=== PATIENT | female | born 1950 | race Caucasian/White ===

== ENCOUNTER → 2017-01-01 14:54 | Outpatient (CLI) | payer MEDICARE, OTHER ==
[~2017-01-01 14:54] MED LIST: BAYER ASPIRIN325 MG PO; BYSTOLIC5 MG PO; CO Q-10200 MG PO; COLACE100 MG PO; CYMBALTA60 MG PO; FLORAJEN3 CAPS460 MG PO; IMITREX50 MG PO; KLONOPIN1 MG PO; MIRALAX17 GM PO; MUCINEX DM ER1 EAC1 PO; NEXIUM20 MG PO; VIBRAMYCIN 100100 MG PO; VITAMIN D5000 UNIT; ZANAFLEX4 MG PO
[2017-01-07 14:24] VITALS: BMI 25.5
== END | disposition home or self-care (01) ==
LOC: D.CT 14:54
DX: J18.9 Pneumonia, unspecified organism (principal)

== ENCOUNTER 2017-01-06 14:20 | Inpatient (IN) | payer MEDICARE, OTHER ==
[~2017-01-06] VITALS: Ht 167.6 cm; Wt 71.7 kg
[2017-01-06 14:48] VITALS: BP 125/96; BMI 25.5
[2017-01-06 14:55] LABS: BASOPHILS 0.4 % (0.0-2.0); EOSINOPHILS 10.2 % (0-7); HEMATOCRIT 44.2 % (36.0-48.0); HEMOGLOBIN 14.7 g/dL (12-16); IMMATURE GRANULOCYTES 0.7 % (0-5); MCH 30.9 pg (26.0-34.0); MCHC 33.3 g/dL (31.0-37.0); MCV 93.1 fL (80.0-100.0); MEAN PLATELET VOLUME 9.3 fL (7.4-10.4); MONOCYTES 10.4 % (2-11); NEUTROPHILS 45.3 % (40-80); PLATELET COUNT 325 10x3/uL (130-400); RBC 4.75 10x6/uL (4.00-5.40); RDW 13.5 % (11.5-14.5); WBC 11.8 10x3/uL (4.8-10.8)
--- NOTE | 2017-01-06 15:00 | NUR ---
PT. ARRIVED VIA AMBULATION. 67Y/O FEMALE PT. AAO X4. PT. DENIES PAIN AT THIS TIME.PT. REPLIES APPROPRIATELY TO QUESTIONS AND CAN FOLLOW VERBAL COMMANDS. PERRLA. RESP. EVEN AND NONLABORED. LUNG SOUNDS CRACKLES BILATERALLY UPPER LOBES AND DIMMINISHED LOWER LUNG SOUNDS. SKIN PINK WARM AND DRY WITH NO REDNESS OR EDEMA. SMALL ABASION IN HEALING PROCESS ON RIGHT MEDIAL ANKLE SCABBED OVER. ABDOMEN SOFT AND NONTENDER WITH BS+X4. BED ON LOWEST SETTING SR X2. CALL LIGHT WITHIN REACH. WILL CONTINUE TO MONITOR
[2017-01-06 15:22] LABS: ALBUMIN 3.6 g/dL (3.4-5.0); ALKALINE PHOSPHATASE 124 U/L (46-116); ALT (SGPT) 27 U/L (10-68); BILIRUBIN - TOTAL 0.21 mg/dL (0.2-1.3); CALC OSMOLALITY 286 mosm/kg (275-300); CALCIUM 9.1 mg/dL (8.5-10.1); CARBON DIOXIDE 30.2 mmol/L (21.0-32.0); CHLORIDE - SERUM 105 mmol/L (98-107); CREATININE - SERUM 0.6 mg/dL (0.6-1.3); GLUCOSE 88 mg/dL (74-106); POTASSIUM - SERUM 4.1 mmol/L (3.5-5.1); PROTEIN - SERUM 6.8 g/dL (6.4-8.2); SODIUM 144 mmol/L (136-145); UREA NITROGEN 16 mg/dL (7-18); eGFR NON AFRICAN AMERICAN > 90 mL/min (90-120)
[2017-01-06] MEDS ORDERED: BYSTOLIC5 MG PO (16:14)
[2017-01-06] MEDS ORDERED: KLONOPIN1 MG PO (16:16)
[2017-01-06] MEDS ORDERED: IMITREX50 MG PO (16:17)
[2017-01-06] MEDS ORDERED: BAYER ASPIRIN325 MG PO (16:17)
[2017-01-06] MEDS ORDERED: MIRALAX17 GM PO (16:18)
[2017-01-06 16:19] VITALS: BP 127/85
[2017-01-06] MEDS ORDERED: NEXIUM20 MG PO (16:19)
[2017-01-06] MEDS ORDERED: CYMBALTA60 MG PO (16:20)
[2017-01-06] MEDS ORDERED: ZANAFLEX4 MG PO (16:20)
[2017-01-06] MEDS ORDERED: CO Q-10200 MG PO (16:21)
[2017-01-06] MEDS ORDERED: COLACE100 MG PO (16:21)
[2017-01-06] MEDS ORDERED: VITAMIN D5000 UNIT (16:22)
[2017-01-06 17:18] LABS: INR 0.91 (0.85-1.17); PROTIME 12.1 SECONDS (11.6-15.0)
--- NOTE | 2017-01-06 18:49 | NUR ---
ATE ALL OF SUPPER. NO C/O AT THIS TIME. DENIES NEEDS. NO CHANGES NOTED.
--- NOTE | 2017-01-06 20:00 | NUR ---
ASSESSMENT PER FLOWSHEET. IV PATENT RT FOREARM OF NS AT O. ANTIBIOTIC HANGING.URINE SP[ECIMEN OBTAINED AND SENT TO LAB.
[2017-01-06 21:00] VITALS: BP 147/74
--- NOTE | 2017-01-06 21:06 | NUR ---
C/O PAIN IN HEAD HAS HX OF MIGRAINES. ULTRAM 50MG PO AND ZANAFLEX 4MG PO GIVEN FOR PAIN AND MUSCLE SPASMS.
--- NOTE | 2017-01-06 23:30 | NUR ---
REQUESTING NERVE PILL. KLONOPIN 0.5MG PO GIVEN FOR PT NERVES AND ANXIETY.
--- NOTE | 2017-01-07 00:30 | NUR ---
PT WANTS HER MIGRAINE MED. NOTIFIED OUMOU LAWTON ORDERS REC'D. NOTIFIED CARGO STATION WORKER Bety LAGUNAS RN WILL BRING SOON POSSIBLE.
[2017-01-07 01:00] VITALS: BP 152/70
--- NOTE | 2017-01-07 01:14 | NUR ---
CHIEF CHEMIST HERE IMITREX 50MG PO GIVEN FOR MIGRAINE HEADACHE PAIN OF A #10.
--- NOTE | 2017-01-07 03:00 | NUR ---
EYES CLOSED STATES PAIN MED HELPED ALOT PT VERY HAPPY PAIN IS STARTING TO SUBSIDE.
[2017-01-07 05:00] VITALS: BP 130/70
[2017-01-07 05:22] LABS: BASOPHILS 0.5 % (0.0-2.0); EOSINOPHILS 11.2 % (0-7); HEMATOCRIT 40.3 % (36.0-48.0); HEMOGLOBIN 13.1 g/dL (12-16); IMMATURE GRANULOCYTES 0.5 % (0-5); LYMPHOCYTES 33.3 % (15-50); MCH 30.2 pg (26.0-34.0); MCHC 32.5 g/dL (31.0-37.0); MCV 92.9 fL (80.0-100.0); MEAN PLATELET VOLUME 9.1 fL (7.4-10.4); MONOCYTES 11.3 % (2-11); NEUTROPHILS 43.2 % (40-80); PLATELET COUNT 287 10x3/uL (130-400); RBC 4.34 10x6/uL (4.00-5.40); RDW 13.6 % (11.5-14.5); WBC 11.1 10x3/uL (4.8-10.8)
[2017-01-07 06:01] LABS: ALBUMIN 2.9 g/dL (3.4-5.0); ALKALINE PHOSPHATASE 95 U/L (46-116); ALT (SGPT) 23 U/L (10-68); CALC OSMOLALITY 285 mosm/kg (275-300); CALCIUM 8.6 mg/dL (8.5-10.1); CARBON DIOXIDE 29.8 mmol/L (21.0-32.0); CHLORIDE - SERUM 107 mmol/L (98-107); CREATININE - SERUM 0.7 mg/dL (0.6-1.3); GLUCOSE 103 mg/dL (74-106); POTASSIUM - SERUM 3.9 mmol/L (3.5-5.1); PROTEIN - SERUM 6.1 g/dL (6.4-8.2); SODIUM 143 mmol/L (136-145); UREA NITROGEN 14 mg/dL (7-18); eGFR NON AFRICAN AMERICAN 88 mL/min (90-120)
--- NOTE | 2017-01-07 06:50 | NUR ---
MEDS GIVEN PER MAR.
--- NOTE | 2017-01-07 07:30 | NUR ---
AWAKE ALERT COLOR ADQ SKIN WARM AND DRY AT PRESENT IV RESITED IN RT WRIST AT PRESENT OTHER SITE JAVIER AND DIS COLORED DCD.
[2017-01-07 08:02] VITALS: BP 120/72
--- NOTE | 2017-01-07 09:51 | NUR ---
TO OR VIA BED AT PRESENT.
--- NOTE | 2017-01-07 13:00 | NUR ---
LUNCH TAKEN 100% family at bedside YOU TO B/R TO VOID LINDA WELL
[2017-01-07 13:54] LABS: EOS BF 23 %; LYMPH - BF 49 %; MACROPHAGES BF 14 %; MESOTHELIALS BF 1 %; NEUT - BF 13 %
[2017-01-07 14:24] VITALS: Ht 167.6 cm; Wt 71.7 kg
--- NOTE | 2017-01-07 15:00 | NUR ---
QUIET IN CHAIR AT PRESENT N/C.
--- NOTE | 2017-01-07 15:11 | NUR ---
Patient Name: LINDEN ANDERSON Admission Status: Urgent Accout number: [id number] Admission Date: 01-06-2017 : 1950 Admission Diagnosis: Attending: JUSTA Current LOS: 1 Anticipated DC Date: 01-10-2017 Planned Disposition: Home Primary Insurance: MEDICARE A & B Discharge Planning Comments: CM MET WITH PATIENT REGARDING D/C NEEDS AND PLANS. PATIENT STATED SHE LIVES ALONE AND WHEN DISCHARGED SOMEONE IN FAMILY WILL DRIVE HER HOME. PATIENT STATED SHE IS INDEPENDENT WITH HER CARE AND HAS A CPAP AT HOME. PATIENT STATED HER PCP IS DR. RIDER AND PHARMACY IS [facility]. PATIENT STATED SHE DOES NOT NEED OR WANT HOME HEALTH THAT SHE IS CLEARED. PATIENT WAS VERY SHARPE WITH SAYING NO HOME HEALTH. CM WILL CONTINUE TO FOLLOW PATIENT WITH D/C NEEDS AND PLANS. PCP DR. ADRY CIFUENTES ([facility]) [address] [phone] APURVA ANDERSON ([phone]) Bobbin Cleaner Hand: Judy Stovall Is the patient Alert and Oriented? Yes 0 * How many steps to enter\exit or inside your home? RAMP 0 * PCP DR. RIDER 0 * Pharmacy [facility] ON [address] 0 * Preadmission Environment Home Alone 0 * ADLs Independent 0 * Equipment CPAP 0 * List name and contact numbers for known caregivers / representatives who currently or will assist patient after discharge: APURVA ANDERSON ([phone]) 0 * Community resources currently utilized None 0 * Additional services required to return to the preadmission environment? Yes 0 * Can the patient safely return to the preadmission environment? Yes 0 * Has this patient been hospitalized within the prior 30 days at any hospital? No 0 Grand Total: 0
--- NOTE | 2017-01-07 16:27 | NUR ---
CONT TO C/O HEADACHE FAMILY AT BEDSIDE AT PRESENT.
[2017-01-07 16:30] VITALS: BP 156/82
--- NOTE | 2017-01-07 17:11 | NUR ---
VS NEW ORDERS R/N AT PRESENT TORODAL 30MG GIVEN SLOW IVP AT PRESENT.
--- NOTE | 2017-01-07 20:00 | NUR ---
ASSESSMENT PER FLOWSHEET. IV SALINE LOCKED TO RT WRIST. SITE CLEAR. RESTING IN BED DENIES NEEDS. SCD'S ON SR UP X2 CALL LIGHT WITHIN NREACH. TELM.SHOWS SR WITH HR 68. DENIES NEEDS.
[2017-01-07 21:00] VITALS: BP 116/73
--- NOTE | 2017-01-07 21:30 | NUR ---
MEDS GIVEN PER MAR.
--- NOTE | 2017-01-08 00:23 | NUR ---
RESTING IN BED DENIES NEEDS.
[2017-01-08 01:00] VITALS: BP 122/70
[2017-01-08 05:50] LABS: BASOPHILS 0.3 % (0.0-2.0); EOSINOPHILS 3.5 % (0-7); HEMATOCRIT 39.4 % (36.0-48.0); HEMOGLOBIN 12.8 g/dL (12-16); IMMATURE GRANULOCYTES 0.3 % (0-5); LYMPHOCYTES 24.1 % (15-50); MCH 30.3 pg (26.0-34.0); MCHC 32.5 g/dL (31.0-37.0); MCV 93.1 fL (80.0-100.0); MEAN PLATELET VOLUME 9.4 fL (7.4-10.4); MONOCYTES 9.4 % (2-11); NEUTROPHILS 62.4 % (40-80); PLATELET COUNT 293 10x3/uL (130-400); RBC 4.23 10x6/uL (4.00-5.40); RDW 13.5 % (11.5-14.5)
[2017-01-08 05:51] LABS: WBC 13.9 10x3/uL (4.8-10.8)
[2017-01-08 06:28] LABS: ALBUMIN 2.9 g/dL (3.4-5.0); ALKALINE PHOSPHATASE 95 U/L (46-116); ALT (SGPT) 26 U/L (10-68); BILIRUBIN - TOTAL 0.62 mg/dL (0.2-1.3); CALC OSMOLALITY 284 mosm/kg (275-300); CALCIUM 8.8 mg/dL (8.5-10.1); CARBON DIOXIDE 31.6 mmol/L (21.0-32.0); CHLORIDE - SERUM 104 mmol/L (98-107); CREATININE - SERUM 0.8 mg/dL (0.6-1.3); GLUCOSE 113 mg/dL (74-106); PROTEIN - SERUM 5.6 g/dL (6.4-8.2); SODIUM 142 mmol/L (136-145); UREA NITROGEN 16 mg/dL (7-18); eGFR NON AFRICAN AMERICAN 75 mL/min (90-120)
[2017-01-08 06:43] LABS: POTASSIUM - SERUM 4.6 mmol/L (3.5-5.1)
--- NOTE | 2017-01-08 07:15 | NUR ---
AWAKE ALERT COLOR ADQ SKIN WARM AND DRY AT PRESENT SL PATENT IN RT WRIST AT PRESENT.LUNGS CLEAR AT PRESENT.
--- NOTE | 2017-01-08 07:55 | NUR ---
NORCO 7.5 PO FOR HEADACHE PER PT REQ AT PRESENT.
[2017-01-08 08:31] VITALS: BP 120/56
--- NOTE | 2017-01-08 10:00 | NUR ---
SON AT BEDSIDE AT PRESENT QUIET N/C VOICED.
--- NOTE | 2017-01-08 11:42 | CN ---
PATIENT NAME:LINDEN ANDERSON MEDICAL RECORD: [id number] : [birth year] LOCATION:D.MS Gutierrez2223 ADMIT DATE: 01/06/17 ACCOUNT: [id number] CONSULTING PHYSICIAN: SONDRA CARLISLE MD REFERRING PHYSICIAN: CARLA RIDER MD DATE OF CONSULTATION: 01/07/2017 Gastrointestinal Consultation REFERRING PHYSICIAN: Jaqueline Loazda MD HISTORY OF PRESENT ILLNESS: The patient is a 66-year-old white female, who is basically admitted with a 1-month history of a persistent low-grade fever and what sounds like pneumonia as well. I was asked to see the patient to see if any GI issues might be contributing to these problems, a solid aspiration. On chart review, I have seen this lady for several years. She has a history of colon polyps, as well as mild sigmoid diverticulosis. She basically normal colonoscopy in August 2016; however, there are small internal hemorrhoids and mild sigmoid diverticulosis. She also has history of reflux disease, but had an essentially normal EGD in August 2015; however, with a minimal stenosis, which was dilated with 54-U[place] Savary dilator. She has been on Protonix for years. She denies any current dysphagia. She does have some chronic constipation issues, which she has had for quite some time. However, she is essentially asymptomatic from a GI standpoint at present. PAST MEDICAL HISTORY: Remarkable for cardiac arrhythmias, status post cardiac ablation. She also has peripheral neuropathy and chronic headaches. She also has hypertension. ALLERGIES: NIACIN, NITROFURANTOIN, RYTHMOL, SIMVASTATIN AND VERAPAMIL. HOME MEDICATIONS: Include Protonix 40 mg daily, aspirin 325 mg daily, Bystolic, Klonopin, Imitrex, MiraLax 17 grams daily, Zanaflex, Cymbalta, Colace, and vitamin D. FAMILY HISTORY: Negative for GI disease. SOCIAL HISTORY: The patient is a nonsmoker, nondrinker. REVIEW OF SYSTEMS: Noncontributory other than in the HPI. PHYSICAL EXAMINATION: GENERAL: Reveals a well- developed white female, in no acute distress. VITAL SIGNS: Stable. She is afebrile. CHEST: Clear. HEART: Regular rate and rhythm. ABDOMEN: Soft and nontender. EXTREMITIES: No edema. LABORATORY DATA: Reveals white count 11,000, hematocrit 44, MCV of 93 and platelet count 325,000. She has a normal differential. Electrolytes are normal. BUN 16 and creatinine 0.4. Liver enzymes are normal. DIAGNOSTIC DATA: Chest x-ray is essentially unremarkable. There is no mention CONSULT REPORT [id number] JUSTINLINDEN Emerson of pneumonia on this film. However, she had a CT of the chest about a week ago that revealed some scattered faint alveolar densities throughout both lungs, more pronounced in the lingula and medial segment of the right middle lobe consistent with pneumonia, as well as some granulomatous changes in the hilum and left lower lobe. She is status post cholecystectomy. IMPRESSION: 1. Low-grade fever with apparent recurrent/persistent pneumonia of unclear etiology. Again, her bedside swallow eval was negative earlier today with no signs of aspiration. She also had ____ bronchoscopy today per Dr. Alcocer. She does have a known mild reflux disease and stable in that regard on Protonix. Again, her last EGD was in October 2015 and was normal other than minimal stenosis status post dilatation. She had no active esophagitis at that time. 2. History of colon polyps, up to date on her colonoscopies. 3. History of mild sigmoid diverticulosis. 4. History of chronic constipation on daily MiraLax. RECOMMENDATION: 1. Continue her PPI daily. 2. Agree with possible need for an ID consult. 3. We will see on a p.r.n. basis. I see no reason for repeat endoscopy at this time. TRANSINT:[id number] Voice Confirmation ID: [id number] DOCUMENT ID: [id number] SONDRA CARLISLE MD at 1142 CC: RANDALL ALCOCER MD and JAQUELINE LOZADA M.D. [id number] DICTATION DATE: 01/07/171904 STENCIL SPRAYER: 01/08/17 0152 ADM IN [facility] [address] [place] [address]
[2017-01-08 11:46] VITALS: BP 92/43
--- NOTE | 2017-01-08 11:56 | NUR ---
HEARD A THUMP SOUND IN ROOM. UPON ENTERING ROOM PT NOTED TO BE IN FLOOR IN FRONT OF SINK WITH SON AT BEDSIDE. STATED SHE WAS UP BRUSHING HER TEETH GOT DIZZY AND WENT TO SIT ON TRASH CAN AND FELL OFF CAN. HELPED TO BED WITH PHYSICAL THERAPY. NO INJURY NOTED. STATES NO PAIN. ACCOUNTS RECEIVABLE SUPERVISOR STATES SB 53 ON MONITOR. EVERARDO LAWTON HERE IN ROOM. NS BOLUS OF 500CC STARTED AFTER SALINE LOCK RESITED TO LEFT FOREARM. BP 79/42. WILL MONITOR FREQ VS.
--- NOTE | 2017-01-08 12:57 | NUR ---
PT SITTING UP IN BED EATING LUNCH. STATES FEELS BETTER BUT STILL LITTLE WOOZY. BP 81 SYST. BRDIGET WEDDING PLANNER NOTIFIED AND NEW ORDERS RECIEVED.
--- NOTE | 2017-01-08 13:00 | NUR ---
REMAINS AWAKE ALERT AT PRESENT N/C VOICED AT PRESENT.
--- NOTE | 2017-01-08 15:00 | NUR ---
UP TO B/R WITH HELP STATES SHE FEEL BACK TO SELF AT PRESENT FAMILY AT BEDSIDE.
[2017-01-08 15:25] LABS: ACID FAST SMEAR Negative (()); AFB SPECIMEN PROCESSING Concentration (()); FUNGUS STAIN Final report (())
[2017-01-08 16:17] VITALS: BP 83/39
--- NOTE | 2017-01-08 17:00 | NUR ---
QUIET N/C VOICED FAMILY REMAINS AT BEDSIDE.
--- NOTE | 2017-01-08 19:00 | NUR ---
BEDSIDE REPORT RECEIVED AND CARE OF PT ASSUMED. PT LYING IN SEMI CRUZ'S POSITION VISITING WITH FAMILY MEMBERS. IV IN LEFT FA SL. TELEMETRY IN USE WITH 79 SR READING AT THIS ASSESSMENT. WILL MONITOR JESSICA FOR NEEDS.
[2017-01-08 21:00] VITALS: BP 107/56
--- NOTE | 2017-01-08 21:31 | NUR ---
HS MEDICATIONS GIVEN TO INCLUDE PRN CLONOZAPAN 1 MG PO PER REQUEST FOR SLEEP. WILL CONTINUE TO MONITOR FOR NEEDS.
--- NOTE | 2017-01-09 00:13 | NUR ---
PT RESTING WITH EYES CLOSED AND EASY RESPIRATIONS. WILL CONTINUE TO MONITOR FOR NEEDS.
[2017-01-09 02:30] VITALS: BP 110/62
[2017-01-09 05:00] VITALS: BP 113/56
[2017-01-09 05:43] LABS: BASOPHILS 0.3 % (0.0-2.0); EOSINOPHILS 6.3 % (0-7); IMMATURE GRANULOCYTES 0.2 % (0-5); LYMPHOCYTES 26.5 % (15-50); MCH 30.2 pg (26.0-34.0); MCHC 32.4 g/dL (31.0-37.0); MCV 93.2 fL (80.0-100.0); MEAN PLATELET VOLUME 9.4 fL (7.4-10.4); MONOCYTES 13.5 % (2-11); NEUTROPHILS 53.2 % (40-80); PLATELET COUNT 263 10x3/uL (130-400); RBC 3.97 10x6/uL (4.00-5.40); RDW 13.8 % (11.5-14.5)
[2017-01-09 05:56] LABS: ALBUMIN 2.5 g/dL (3.4-5.0); ALKALINE PHOSPHATASE 85 U/L (46-116); ALT (SGPT) 31 U/L (10-68); C-REACTIVE PROTEIN 2.9 mg/dL (0.0-0.9); CALC OSMOLALITY 290 mosm/kg (275-300); CALCIUM 8.1 mg/dL (8.5-10.1); CARBON DIOXIDE 27.3 mmol/L (21.0-32.0); CHLORIDE - SERUM 111 mmol/L (98-107); CREATININE - SERUM 0.8 mg/dL (0.6-1.3); GLUCOSE 123 mg/dL (74-106); PROTEIN - SERUM 5.4 g/dL (6.4-8.2); SODIUM 145 mmol/L (136-145); UREA NITROGEN 15 mg/dL (7-18); eGFR NON AFRICAN AMERICAN 75 mL/min (90-120)
[2017-01-09 05:58] LABS: WBC 10.1 10x3/uL (4.8-10.8)
[2017-01-09 06:00] LABS: POTASSIUM - SERUM 3.9 mmol/L (3.5-5.1)
[2017-01-09 07:28] LABS: ERYTHROCYTE SEDIMENTATION RATE 17 mm/hr (0-30)
[2017-01-09 08:35] VITALS: BP 127/62
--- NOTE | 2017-01-09 08:35 | NUR ---
ASSESSMENT PER FLOW SHEET.PT WITHOUT DISTRESS.CALL LIGHT IN REACH.PT DENIES NEEDS AT PRESENT.CALL LIGHT IN REACH.
--- NOTE | 2017-01-09 09:40 | CN ---
PATIENT NAME:LINDEN STEVENS MEDICAL RECORD: [id number] : [birth year] LOCATION:D.MS Gutierrez2223 ADMIT DATE: 01/06/17 ACCOUNT: [id number] CONSULTING PHYSICIAN: RANDALL PINEDO MD REFERRING PHYSICIAN: CARLA RIDER MD DATE OF CONSULTATION: 01/06/2017 CONSULT REQUESTING PHYSICIAN: Carla Rider MD REASON FOR CONSULTATION: Pneumonia and fever. HISTORY OF PRESENT ILLNESS: Ms. Stevens is a 66-year-old very pleasant lady. She has a fever for the last 1 month. She is coughing, which is not very much productive. She has also associated headache and hoarseness. Fever run from 99.4 to 101. She was seen in Dr. Post's office, who is her sld inclusion teacher and sleep medicine doctor in [facility] and the chest radiograph showed pneumonia. She has been given Levaquin, but her fever reoccurred. Her symptoms felt a little bit better when she was on prednisone. She has chest pain, which is better. The pain was mainly pleuritic type in nature. On Friday, she has a temperature of 100.5 and the patient was now directly admitted from the office as she was not benefitting from outpatient antibiotic. REVIEW OF SYSTEMS: CONSTITUTIONAL: She has fever and chill and she has fatigue and malaise. HEENT: Sinus congestion. RESPIRATORY: As in history of present illness. CARDIOVASCULAR: No chest pain. GASTROINTESTINAL: No nausea, vomiting. No diarrhea. GENITOURINARY: Negative. Other review of systems is negative. PAST MEDICAL HISTORY: 1. Obstructive sleep apnea and using CPAP machine. 2. Hypertension. 3. History of irritable bowel syndrome. 4. Fibromyalgia. 5. Depression. 6. Migraine headache. 7. Neuropathy. PAST SURGICAL HISTORY: 1. She has a colonoscopy. 2. She has an EGD and she had dilatation of the esophageal stricture times 2. 3. Hysterectomy. 4. Cholecystectomy. 5. Tonsillectomy. 6. Coronary ablation surgery. ALLERGIES: SHE IS ALLERGIC TO MACROBID, NIACIN, SIMVASTATIN, RESTORIL AND RYTHMOL. PRESENT MEDICATIONS: She has just finished a course of Levaquin. Her other medications are reviewed. PERSONAL AND SOCIAL HISTORY: The patient never smoked. She is a nondrinker. CONSULT REPORT [id number] LINDEN STEVENS Emerson FAMILY HISTORY: Noncontributory. PHYSICAL EXAMINATION: GENERAL: Now, the patient is lying comfortably. She is not in acute distress. VITAL SIGNS: The blood pressure 125/96, pulse is 87, respiration is 16, temperature 99.9, SpO2 is 95% on room air. HEENT: Conjunctivae are pink. Sclerae are nonicteric. NECK: Supple, no JVD. CHEST: The chest excursion is minimal and both have bilateral crackles. No wheezing. HEART: Rhythm regular, normal sound, no murmur. ABDOMEN: Soft. Bowel sounds present. No hepatosplenomegaly. RECTAL: Deferred. EXTREMITIES: No cyanosis, no clubbing, no pedal edema. SKIN: Warm, normal turgor. CENTRAL NERVOUS SYSTEM: The patient is awake and alert. There are no obvious cranial nerve abnormalities. The gait was not tested. IMAGING: CT scan of the chest on 01/01/2017. She has bilateral patchy infiltrate. There are old calcified granulomas. OTHER LABORATORY DATA: CBC: WBC is 11.8, hemoglobin 14.7, hematocrit 44.2, the platelet count 325. Chemistry: Sodium 144, potassium 4.1, BUN is 16, creatinine 0.6, glucose is 88. IMPRESSION: 1. Bilateral pneumonia, most likely community-acquired pneumonia, possible aspiration with history of esophageal stricture and severe gastroesophageal reflux disease. 2. Fever secondary to pneumonia. 3. Leukocytosis. 4. Gastroesophageal reflux disease. 5. History of esophageal stricture. 6. Obstructive sleep apnea, the patient pretty compliant. 7. Fibromyalgia. RECOMMENDATIONS: 1. I will start her on Zosyn and doxycycline IV. We will get the infectious disease consult. 2. Check the blood culture. 3. Sputum culture. 4. Urine culture. 5. Follow up labs and chest radiograph Dr. Rider, once again thanks for involving me in the care of Ms. Stevens. TRANSINT:[id number] Voice Confirmation ID: [id number] DOCUMENT ID: [id number] CONSULT REPORT [id number] LINDEN STEVENS MUSHTAQ MD at 0940 CC: CARLA RIDER MD [id number] DICTATION DATE: 01/06/17 162 INFORMATION TECHNOLOGY INTERN: 01/06/17 2241 ADM IN [facility] [address] [place] [address]
--- NOTE | 2017-01-09 09:40 | PRO ---
PATIENT:LINDEN STEVENS MEDICAL RECORD: [id number] : 46 LOCATION:D.MS Gutierrez2223 ADMISSION DATE: 01/06/17 PROCEDURE PERFORMED BY: RANDALL PINEDO MD DATE OF PROCEDURE: 01/07/2017 PROCEDURE: Fiberoptic bronchoscopy. INDICATION: Ms. Stevens is a 66-year-old female. She has a fever and pneumonia for the last 1 month. The patient is still having a running fever, even after a course of antibiotic. A fiberoptic bronchoscopy was carried out to inspect the airways and to obtain specimens for culture and sensitivity and BAL. MONITORING: EKG, pulse, and blood pressure were monitored throughout the procedure. MEDICATIONS: Atropine 0.6 mg IV, fentanyl 100 mcg IV in divided doses, Versed 5 mg IV in divided doses. Lidocaine for local anesthesia. DESCRIPTION OF THE PROCEDURE: After getting conscious sedation, the fiberoptic bronchoscope was easily passed through the mouth. The vocal cords were normal, moving equally on phonation. The epiglottis was normal. The pyriform sinuses were normal. The main trachea was normal. The ramu was sharp. The right main bronchus, subsegment to the right upper lobe, right middle lobe, right lower lobe within normal range. No endobronchial lesion was seen. There was a white yellowish secretion coming from the right middle lobe. The left main bronchus was normal. The subsegment to the left upper lobe lingula, left lower lobe within normal range. No endobronchial lesion was seen. Specimen BAL was obtained from right middle lobe and sent for routine culture and sensitivity, AFB, fungus, PCP, white cell count. The washing was obtained from both sides and sent for routine culture and sensitivity, AFB, fungus and cytology. Overall, the patient tolerated the procedure very well. TRANSINT:[id number] Voice Confirmation ID: [id number] DOCUMENT ID: [id number] RANDALL PINEDO MD at 0940 CC: CARLA RIDER MD [id number] DICTATION DATE: 01/07/17 1030 PONY RIDE OPERATOR: 01/08/17 0147 ADM IN [facility] [id number] [place] [address]
--- NOTE | 2017-01-09 12:00 | NUR ---
REMAINS WITHOUT NEEDS,WITHOUT DISTRESS.CALL LIGHT IN REACH
[2017-01-09 13:31] VITALS: BP 121/70
[2017-01-09 16:17] VITALS: BP 131/69
--- NOTE | 2017-01-09 17:51 | NUR ---
UP TO CHAIR FOR DINNER.REMAINS WITHOUT DISTRESS. WITHOUT CHANGE,CONT PLAN OF CARE.
--- NOTE | 2017-01-09 19:00 | NUR ---
BEDSIDE REPORT RECEIVED AND CARE OF PT ASSUMED. PT LYING IN SUPINE POSITION WATCHING TV. IV IN LEFT FA SALINE LOCKED. PT STATES FEELING BETTER AND LOOKING FORWARD TO GOING HOME TOMORROW. TELEMETRY IN USE AND READING 81 SR AT THIS ASSESSMENT. WILL MONITOR JESSICA FOR NEEDS.
[2017-01-09 20:00] VITALS: BP 129/66
--- NOTE | 2017-01-09 21:45 | NUR ---
HS MEDICATIONS GIVEN TO INCLUDE REQUESTED KLONOPIN 1 MG PO FOR SLEEP AIDE. WILL CONTINUE TO MONITOR FOR NEEDS. CALL LIGHT WITHIN REACH.
[2017-01-10] VITALS: BP 120/62
[2017-01-10 04:00] VITALS: BP 127/71
[2017-01-10 05:48] LABS: BASOPHILS 0.3 % (0.0-2.0); EOSINOPHILS 7.7 % (0-7); HEMATOCRIT 37.1 % (36.0-48.0); HEMOGLOBIN 12.1 g/dL (12-16); IMMATURE GRANULOCYTES 0.5 % (0-5); LYMPHOCYTES 30.5 % (15-50); MCH 30.2 pg (26.0-34.0); MCHC 32.6 g/dL (31.0-37.0); MCV 92.5 fL (80.0-100.0); MEAN PLATELET VOLUME 9.4 fL (7.4-10.4); MONOCYTES 12.6 % (2-11); NEUTROPHILS 48.4 % (40-80); PLATELET COUNT 287 10x3/uL (130-400); RBC 4.01 10x6/uL (4.00-5.40); RDW 13.7 % (11.5-14.5); WBC 10.2 10x3/uL (4.8-10.8)
[2017-01-10 06:15] LABS: ALBUMIN 2.6 g/dL (3.4-5.0); ALKALINE PHOSPHATASE 105 U/L (46-116); ALT (SGPT) 35 U/L (10-68); BILIRUBIN - TOTAL 0.37 mg/dL (0.2-1.3); CALC OSMOLALITY 289 mosm/kg (275-300); CALCIUM 8.4 mg/dL (8.5-10.1); CARBON DIOXIDE 28.8 mmol/L (21.0-32.0); CHLORIDE - SERUM 108 mmol/L (98-107); CREATININE - SERUM 0.7 mg/dL (0.6-1.3); GLUCOSE 140 mg/dL (74-106); POTASSIUM - SERUM 3.6 mmol/L (3.5-5.1); PROTEIN - SERUM 5.7 g/dL (6.4-8.2); SODIUM 144 mmol/L (136-145); UREA NITROGEN 16 mg/dL (7-18); eGFR NON AFRICAN AMERICAN 88 mL/min (90-120)
[2017-01-10 08:13] VITALS: BP 136/70
--- NOTE | 2017-01-10 09:00 | NUR ---
ASSESSMENT PER FLOW SHEET.PT WITHOUT DISTRESS.DENIES NEEDS.CALL LIGHT IN REACH
[2017-01-10] MEDS ORDERED: VIBRAMYCIN 100100 MG PO (10:06)
[2017-01-10] MEDS ORDERED: FLORAJEN3 CAPS460 MG PO (10:07)
[2017-01-10] MEDS ORDERED: MUCINEX DM ER1 EAC1 PO (10:07)
--- NOTE | 2017-01-10 10:19 | NUR ---
CM MET WITH PATIENT REGARDING D/C TODAY. FAMILY IS DRIVING HER HOME AND SHE DENIES HOME HEALTH OR ANY OTHER NEEDS FOR DISCHARGE.
--- NOTE | 2017-01-10 11:56 | NUR ---
DISCHARGE INSTRUCTIONS,STATES UNDERSTANDING.IV DCD CATH INTACT.
--- NOTE | 2017-01-10 11:58 | NUR ---
LEFT UNIT VIA WHEELCHAIR WITH FAMILY AT SIDE
[2017-01-10 13:16] LABS: ANA REFLEX - DIRECT Negative (Negative); EBV - EARLY ANTIGEN AB IGG <9.0 U/mL (0.0-8.9); EBV VIRAL CAPSID AB IGG >600.0 U/mL (0.0-17.9); EBV VIRAL CAPSID AB IGM <36.0 U/mL (0.0-35.9)
[2017-01-10 14:23] LABS: CYTOMEGALOVIRUS AB IGG >10.00 U/mL (0.00-0.59)
[2017-01-13 16:13] LABS: ANCA - ANTIMYELOPEROXIDASE <9.0 U/mL (0.0-9.0); ANCA - ANTIPROTEINASE 3 <3.5 U/mL (0.0-3.5); ANCA - ATYPICAL <1:20 titer (Neg:<1:20); ANCA - CYTOPLASMIC <1:20 titer (Neg:<1:20); ANCA - PERINUCLEAR <1:20 titer (Neg:<1:20)
[2017-01-16 09:17] LABS: VIRAL - RESULT No virus isolated. (())
[2017-01-22 16:15] LABS: FUNGUS CULTURE RESULT 1 Aspergillus niger (()); FUNGUS MYCOLOGY CULTURE Final report (())
[2017-01-24 09:18] LABS: ACID FAST CULTURE Positive (())
[2017-01-27 13:14] LABS: M TUBERCULOSIS Negative (())
[2017-02-02 12:08] LABS: ACID FAST CULTURE Positive (()); M TUBERCULOSIS Negative (())
[2017-02-05 07:24] LABS: FUNGUS MYCOLOGY CULTURE Final report (())
[2017-02-12 14:24] LABS: AMIKACIN 16.0 ug/mL (())
[2017-02-19 14:23] LABS: AMIKACIN 16.0 ug/mL (())
== END 2017-01-10 12:02 | disposition home or self-care (01) | DRG 195 ==
LOC: D.MS 14:20
PROVIDERS: Family Medicine; Internal Medicine Pulmonary Disease; Student in an Organized Health Care Education/Training Program; ADMIT Family Medicine
PROC: 0B958ZX Drainage of Right Middle Lobe Bronchus, Via Natural or Artificial Opening Endoscopic, Diagnostic (ICD-10-PCS; 2017-01-07)
PROC: 0BB58ZX Excision of Right Middle Lobe Bronchus, Via Natural or Artificial Opening Endoscopic, Diagnostic (ICD-10-PCS; principal; 2017-01-07 09:51)
DX: J18.1 Lobar pneumonia, unspecified organism (principal); G47.33 Obstructive sleep apnea (adult) (pediatric); I10 Essential (primary) hypertension; M79.7 Fibromyalgia; R13.12 Dysphagia, oropharyngeal phase; R09.02 Hypoxemia; K21.9 Gastro-esophageal reflux disease without esophagitis; Z86.010 Personal history of colon polyps; K64.8 Other hemorrhoids; K59.09 Other constipation; G62.9 Polyneuropathy, unspecified; R06.00 Dyspnea, unspecified; I95.1 Orthostatic hypotension; W18.30XA Fall on same level, unspecified, initial encounter; Y92.230 Patient room in hospital as the place of occurrence of the external cause

== ENCOUNTER → 2017-02-05 14:12 | Outpatient (CLI) | payer MEDICARE, OTHER ==
[2017-01-07 14:24] VITALS: BMI 25.5
== END | disposition home or self-care (01) ==
LOC: D.RAD 13:00
DX: J18.9 Pneumonia, unspecified organism (principal)

== ENCOUNTER 2017-02-23 05:51 | Emergency (ER) | payer MEDICARE, OTHER ==
[2017-02-23 06:37] LABS: APPEARANCE CLEAR (CLEAR); BACTERIA FEW /hpf (NONE SEEN); BILIRUBIN NEGATIVE (NEGATIVE); COLOR YELLOW (YELLOW); EPITHELIAL CELLS OCC /hpf (0-5); GLUCOSE NEGATIVE (NEGATIVE); KETONE NEGATIVE (NEGATIVE); LEUKOCYTE ESTERASE NEGATIVE (NEGATIVE); NITRITE NEGATIVE (NEGATIVE); PROTEIN NEGATIVE (NEGATIVE); RED CELLS - URINE 0-5 /hpf (0-5); SPECIFIC GRAVITY 1.015 (1.005-1.020); UROBILINOGEN NORMAL (NORMAL); WHITE CELLS - URINE OCC /hpf (0-5)
== END 2017-02-23 08:59 | disposition home or self-care (01) ==
LOC: D.ER 05:51
PROVIDERS: Emergency Medicine
DX: N20.1 Calculus of ureter (principal); H26.8 Other specified cataract

== ENCOUNTER → 2017-04-07 10:15 | Outpatient (CLI) | payer MEDICARE, OTHER ==
[2017-01-07 14:24] VITALS: BMI 25.5
== END | disposition home or self-care (01) ==
LOC: D.CT 10:15
DX: A31.0 Pulmonary mycobacterial infection (principal)

== ENCOUNTER → 2017-04-09 18:48 | Outpatient (CLI) | payer MEDICARE, OTHER ==
[2017-01-07 14:24] VITALS: BMI 25.5
[2017-04-09 19:53] LABS: BASOPHILS 0.5 % (0-2); EOSINOPHILS 2.3 % (0-7); HEMATOCRIT 45.2 % (36.0-48.0); IMMATURE GRANULOCYTES 0.2 % (0-5); LYMPHOCYTES 34.3 % (15-50); MCH 30.7 pg (26.0-34.0); MCHC 33.2 g/dL (31.0-37.0); MCV 92.6 fL (80.0-100.0); MEAN PLATELET VOLUME 10.1 fL (7.4-10.4); MONOCYTES 8.1 % (2-11); NEUTROPHILS 54.6 % (40-80); PLATELET COUNT 289 10x3/uL (130-400); RBC 4.88 10x6/uL (4.00-5.40); RDW 12.7 % (11.5-14.5); WBC 10.3 10x3/uL (4.8-10.8)
[2017-04-09 20:06] LABS: ALBUMIN 3.7 g/dL (3.4-5.0); ALKALINE PHOSPHATASE 116 U/L (46-116); ALT (SGPT) 29 U/L (10-68); BILIRUBIN - TOTAL 0.27 mg/dL (0.2-1.3); CALC OSMOLALITY 279 mosm/kg (275-300); CALCIUM 9.2 mg/dL (8.5-10.1); CARBON DIOXIDE 31.5 mmol/L (21.0-32.0); CHLORIDE - SERUM 102 mmol/L (98-107); CREATININE - SERUM 0.7 mg/dL (0.6-1.3); POTASSIUM - SERUM 4.2 mmol/L (3.5-5.1); PROTEIN - SERUM 6.9 g/dL (6.4-8.2); SODIUM 141 mmol/L (136-145); UREA NITROGEN 13 mg/dL (7-18); eGFR NON AFRICAN AMERICAN 88 mL/min (90-120)
[2017-04-09 20:08] LABS: GLUCOSE 75 mg/dL (74-106)
== END | disposition home or self-care (01) ==
LOC: D.LABREF 18:47
PROVIDERS: Student in an Organized Health Care Education/Training Program
DX: A31.0 Pulmonary mycobacterial infection (principal); Z51.81 Encounter for therapeutic drug level monitoring; Z79.899 Other long term (current) drug therapy

== ENCOUNTER 2017-05-09 20:55 | Emergency (ER) | payer MEDICARE, OTHER ==
[2017-01-07 14:24] VITALS: BMI 25.5
[2017-05-09 23:11] LABS: BASOPHILS 0.2 % (0-2); EOSINOPHILS 0.3 % (0-7); HEMATOCRIT 45.1 % (36.0-48.0); IMMATURE GRANULOCYTES 0.2 % (0-5); LYMPHOCYTES 18.6 % (15-50); MCH 30.3 pg (26.0-34.0); MCHC 33.3 g/dL (31.0-37.0); MCV 91.1 fL (80.0-100.0); MEAN PLATELET VOLUME 9.6 fL (7.4-10.4); MONOCYTES 4.5 % (2-11); NEUTROPHILS 76.2 % (40-80); PLATELET COUNT 215 10x3/uL (130-400); RBC 4.95 10x6/uL (4.00-5.40); RDW 12.8 % (11.5-14.5); WBC 9.6 10x3/uL (4.8-10.8)
[2017-05-09 23:18] LABS: CALCIUM 9.9 mg/dL (8.5-10.1); CARBON DIOXIDE 32.1 mmol/L (21.0-32.0); CREATININE - SERUM 0.9 mg/dL (0.6-1.3); POTASSIUM - SERUM 4.1 mmol/L (3.5-5.1)
== END 2017-05-09 23:54 | disposition home or self-care (01) ==
LOC: D.ER 20:55
PROVIDERS: Nurse Practitioner Acute Care
DX: R11.10 Vomiting, unspecified (principal)

== ENCOUNTER → 2017-09-24 10:59 | Outpatient (CLI) | payer MEDICARE, OTHER ==
[2017-01-07 14:24] VITALS: BMI 25.5
== END | disposition home or self-care (01) ==
LOC: D.CT 10:59
DX: A31.0 Pulmonary mycobacterial infection (principal)

== ENCOUNTER → 2017-10-15 08:37 | Outpatient (CLI) | payer MEDICARE, OTHER ==
[2017-01-07 14:24] VITALS: BMI 25.5
== END | disposition home or self-care (01) ==
LOC: D.CT 08:37
DX: R10.9 Unspecified abdominal pain (principal)

== ENCOUNTER → 2017-10-23 12:39 | Outpatient (CLI) | payer MEDICARE, OTHER ==
[2017-01-07 14:24] VITALS: BMI 25.5
== END | disposition home or self-care (01) ==
LOC: D.RAD 10-22 08:00
DX: R10.10 Upper abdominal pain, unspecified (principal); K59.00 Constipation, unspecified

== ENCOUNTER 2019-03-31 19:24 | Inpatient (IN) | payer MEDICARE, OTHER ==
[~2019-03-31] VITALS: Ht 167.6 cm; Wt 74.8 kg
[2019-03-31] MEDS ORDERED: PROZAC10 MG PO (19:34)
[2019-03-31] MEDS ORDERED: GLUCOPHAGE500 MG PO (19:35)
[2019-03-31] MEDS ORDERED: GEMFIBROZIL600 MG PO (19:36)
[2019-03-31] MEDS ORDERED: GABAPENTIN100 MG PO (19:36)
[2019-03-31] MEDS ORDERED: METOPROLOL TART50 MG PO (19:36)
[2019-03-31 20:15] LABS: BASOPHILS 0.2 % (0-2); HEMATOCRIT 41.8 % (36.0-48.0); HEMOGLOBIN 14.3 g/dL (12-16); IMMATURE GRANULOCYTES 0.3 % (0-5); LYMPHOCYTES 30.7 % (15-50); MCH 30.6 pg (26.0-34.0); MCHC 34.2 g/dL (31.0-37.0); MCV 89.5 fL (80.0-100.0); MEAN PLATELET VOLUME 9.2 fL (7.4-10.4); MONOCYTES 7.6 % (2-11); NEUTROPHILS 59.2 % (40-80); RBC 4.67 10x6/uL (4.00-5.40); RDW 13.3 % (11.5-14.5); WBC 14.8 10x3/uL (4.8-10.8)
[2019-03-31 20:45] LABS: PLATELET COUNT 314 10x3/uL (130-400)
[2019-03-31 20:50] LABS: COLOR YELLOW (YELLOW)
[2019-03-31 20:51] LABS: APPEARANCE CLEAR (CLEAR); BILIRUBIN NEGATIVE (NEGATIVE); GLUCOSE NEGATIVE (NEGATIVE); KETONE NEGATIVE (NEGATIVE); NITRITE NEGATIVE (NEGATIVE); PROTEIN NEGATIVE (NEGATIVE); SPECIFIC GRAVITY 1.015 (1.005-1.020); UROBILINOGEN NORMAL (NORMAL)
[2019-03-31 21:02] LABS: ALBUMIN 3.7 g/dL (3.4-5.0); ALKALINE PHOSPHATASE 86 U/L (46-116); ALT (SGPT) 32 U/L (10-68); BILIRUBIN - TOTAL 0.18 mg/dL (0.2-1.3); CALC OSMOLALITY 279 mosm/kg (275-300); CALCIUM 9.3 mg/dL (8.5-10.1); CARBON DIOXIDE 28.1 mmol/L (21.0-32.0); CHLORIDE - SERUM 101 mmol/L (98-107); CREATININE - SERUM 0.8 mg/dL (0.6-1.3); POTASSIUM - SERUM 3.9 mmol/L (3.5-5.1); PROTEIN - SERUM 7.6 g/dL (6.4-8.2); SODIUM 140 mmol/L (136-145); UREA NITROGEN 14 mg/dL (7-18); eGFR NON AFRICAN AMERICAN 75 mL/min (90-120)
[2019-03-31 21:05] LABS: AMYLASE - SERUM 33 U/L (25-115); GLUCOSE 97 mg/dL (74-106); LIPASE 132 U/L (73-393); TROPONIN-I < 0.017 ng/mL (0.000-0.060)
--- NOTE | 2019-03-31 22:55 | NUR ---
PT TO CT VIA WHEELCHAIR.
[2019-03-31 23:28] VITALS: BP 125/82
[2019-04-01] VITALS (7 sets, daily range): BP systolic 109–146; BP diastolic 59–81; Ht 167.6 cm; Wt 74.8 kg
--- NOTE | 2019-04-01 01:25 | NUR ---
CHANGED INFUSION RATE OF THE NORMAL SALINE THAT WAS TO HAVE 125ML INFUSED TO CONTINUE INFUSING AT A RATE OF 100ML/HR.
[2019-04-01] MEDS ORDERED: CYCLOBENZAPRINE10 MG PO (02:09)
[2019-04-01] MEDS ORDERED: MIRALAX17 GM PO (02:15)
--- NOTE | 2019-04-01 02:16 | NUR ---
RECEIVED TO ROOM VIA STRECHER FROM ER. ALERT,ORIENTED. RESP EVEN AND UNLAOBORED. IV INFUSING TO LAC WITHOUT REDNESS OR EDEMA NOTED. ORIENTED TO ROOM. CL IN REACH
--- NOTE | 2019-04-01 07:30 | NUR ---
ALERT AND ORIENTED X 3. LUNGS CLEAR BILATERALLY IN ALL MATA. HEART SOUNDS S1 AND S2 HEARD IN ALL MATA. SKIN INTACT WITHOUT REDNESS. IV TO LEFT AC PATENT WITHOUT REDNESS. SCDS IN PLACE. BED LOW. CALL MARTINES AND PERSONAL ITEMS IN REACH. WILL CONINUE TO MONITOR.
--- NOTE | 2019-04-01 09:41 | NUR ---
REQUESTED TYLENOL FOR HEADACHE. NEW ORDER PER MARKETING ASSOCIATE. CALLED ABOUT NEED FOR TELEMETRY BOX. STATED NO BOXES AVAILABLE AT THIS TIME BUT WILL CALL WHEN ONE IS AVAILABLE.
[2019-04-01 10:44] LABS: BASOPHILS 0.2 % (0-2); EOSINOPHILS 1.8 % (0-7); HEMATOCRIT 34.8 % (36.0-48.0); HEMOGLOBIN 11.7 g/dL (12-16); IMMATURE GRANULOCYTES 0.2 % (0-5); LYMPHOCYTES 25.1 % (15-50); MCHC 33.6 g/dL (31.0-37.0); MCV 89.2 fL (80.0-100.0); MEAN PLATELET VOLUME 8.5 fL (7.4-10.4); MONOCYTES 8.9 % (2-11); NEUTROPHILS 63.8 % (40-80); RDW 13.3 % (11.5-14.5)
[2019-04-01 10:48] LABS: PLATELET COUNT 231 10x3/uL (130-400); WBC 10.2 10x3/uL (4.8-10.8)
[2019-04-01 11:03] LABS: ALBUMIN 2.8 g/dL (3.4-5.0); ALKALINE PHOSPHATASE 65 U/L (46-116); ALT (SGPT) 31 U/L (10-68); CALC OSMOLALITY 277 mosm/kg (275-300); CALCIUM 8.1 mg/dL (8.5-10.1); CARBON DIOXIDE 28.2 mmol/L (21.0-32.0); CHLORIDE - SERUM 106 mmol/L (98-107); CREATININE - SERUM 0.6 mg/dL (0.6-1.3); GLUCOSE 123 mg/dL (74-106); POTASSIUM - SERUM 3.8 mmol/L (3.5-5.1); PROTEIN - SERUM 5.9 g/dL (6.4-8.2); SODIUM 140 mmol/L (136-145); UREA NITROGEN 8 mg/dL (7-18); eGFR NON AFRICAN AMERICAN > 90 mL/min (90-120)
--- NOTE | 2019-04-01 12:03 | NUR ---
BLOOD SUGAR 114. NO COVERAGE NEEDED. DENIES FURTHER NEEDS.
--- NOTE | 2019-04-01 13:36 | NUR ---
SITTING IN BED EATING LUNCH. WILL CONTINUE TO MONITOR.
--- NOTE | 2019-04-01 15:36 | NUR ---
RESTING IN BED. DENIES PAIN. DENIES NEEDS.
--- NOTE | 2019-04-01 16:09 | MORECARE ---
CASE MANAGEMENT DISCHARGE SUMMARY PATIENT: LINDEN ANDERSON UNIT: [id number] ADM DATE: 04/01/19 AGE: 68 : 48 SEX: F ROOM/BED: D.2215 AUTHOR: MARITZA BELLA PHYSICIAN: REFERRING PHYSICIAN: SONDRA CHACON MD DATE OF SERVICE: 04/01/19 Discharge Plan Patient Name: [facility]INDEN ANDERSON [facility] [facility] 1950 Planned Disposition: Anticipated Discharge Date: Discharge Date: Expected LOS: Initial Reviewer: [email or web address] Initial Review Date: 04/01/2019 Generated: 04/01/19 5:08 pm Comments DCP- Discharge Planning Updated by [email or web address]: Lilly Benavides on 04/01/19 2:[address] Attempted to see patient but she was sleeping Will try again tomorrow Patient Name: LINDEN ANDERSON Page [phone] at 1609 All edits/amendments must be made on the electronic document DICTATION DATE: 04/01/191607 CHEESE FACTORY WORKER: MONA 04/01/191607 RPT#: [id number] DC DATE: STATUS: ADM IN [facility] [address] [place] [address] END OF REPORT
--- NOTE | 2019-04-01 17:00 | NUR ---
IV RESITED TO LFA PER PATIENT REQUEST. IV REMOVED FROM LEFT AC WITH TIP INTACT.
--- NOTE | 2019-04-01 20:19 | NUR ---
ALERT,ORIENTED.RESTING QUEITLY WITH NO COMPLAITNS VOICED. RESP UNLABORED. NO DISTRESS NOTED. IV INFUSING TO LFA WITHOUT REDNESS OR EDEMA NOTED. CL IN REACH
--- NOTE | 2019-04-01 23:53 | NUR ---
I have reviewed this patient and I concur with the Shift Assessment completed by the Licensed Practical Nurse today this shift.
[2019-04-02 02:08] VITALS: BP 130/70
[2019-04-02 04:49] VITALS: BP 154/60
[2019-04-02 05:48] LABS: BASOPHILS 0.2 % (0-2); EOSINOPHILS 4.2 % (0-7); HEMATOCRIT 36.3 % (36.0-48.0); IMMATURE GRANULOCYTES 0.1 % (0-5); LYMPHOCYTES 29.9 % (15-50); MCH 29.9 pg (26.0-34.0); MCHC 33.1 g/dL (31.0-37.0); MCV 90.5 fL (80.0-100.0); MEAN PLATELET VOLUME 8.8 fL (7.4-10.4); MONOCYTES 11.4 % (2-11); NEUTROPHILS 54.2 % (40-80); PLATELET COUNT 248 10x3/uL (130-400); RBC 4.01 10x6/uL (4.00-5.40); RDW 13.5 % (11.5-14.5); WBC 9.1 10x3/uL (4.8-10.8)
[2019-04-02 05:54] LABS: ALBUMIN 2.7 g/dL (3.4-5.0); ALKALINE PHOSPHATASE 65 U/L (46-116); CALC OSMOLALITY 284 mosm/kg (275-300); CALCIUM 8.1 mg/dL (8.5-10.1); CARBON DIOXIDE 27.6 mmol/L (21.0-32.0); CHLORIDE - SERUM 107 mmol/L (98-107); CREATININE - SERUM 0.5 mg/dL (0.6-1.3); GLUCOSE 96 mg/dL (74-106); POTASSIUM - SERUM 3.8 mmol/L (3.5-5.1); PROTEIN - SERUM 5.8 g/dL (6.4-8.2); SODIUM 144 mmol/L (136-145); UREA NITROGEN 6 mg/dL (7-18); eGFR NON AFRICAN AMERICAN > 90 mL/min (90-120)
[2019-04-02 05:55] LABS: ALT (SGPT) 21 U/L (10-68)
--- NOTE | 2019-04-02 08:00 | NUR ---
ASSESSMENT PER FLOW SHEET. PT IS WITHOUT DISTRESS. MONITOR FOR NEEDS.CALL LIGHT IN REACH
[2019-04-02 09:39] VITALS: BP 141/69
--- NOTE | 2019-04-02 13:05 | MORECARE ---
CASE MANAGEMENT DISCHARGE SUMMARY PATIENT: LINDEN ANDERSON UNIT: [id number] ADM DATE: 04/01/19 AGE: 68 : 48 SEX: F ROOM/BED: D.2215 AUTHOR: MARITZA BELLA PHYSICIAN: REFERRING PHYSICIAN: SONDRA CHACON MD DATE OF SERVICE: 04/02/19 Discharge Plan Patient Name: LINDEN ANDERSON [facility] [facility] 1950 Planned Disposition: Home with Home Health Anticipated Discharge Date: Discharge Date: Expected LOS: Initial Reviewer: [email or web address] Initial Review Date: 04/01/2019 Generated: 04/02/19 2:05 pm Comments DCP- Discharge Planning Updated by [email or web address]: Lilly Benavides on 04/01/19 2:[address] Attempted to see patient but she was sleeping Will try again tomorrow Last DP export: 04/01/19 3:09 p Patient Name: LINDEN ANDERSON Page [phone] at 1305 All edits/amendments must be made on the electronic document DICTATION DATE: 04/02/19 1305 TRANSMITTER TESTER: MONA 04/02/19 1305 RPT#: [id number] DC DATE: STATUS: ADM IN [facility] [address] [place] [address] END OF REPORT
--- NOTE | 2019-04-02 13:12 | MORECARE ---
CASE MANAGEMENT DISCHARGE SUMMARY PATIENT: LINDEN ANDERSON UNIT: [id number] ADM DATE: 04/01/19 AGE: 68 : 48 SEX: F ROOM/BED: D.1160 AUTHOR: SHAYNEDOC PHYSICIAN: REFERRING PHYSICIAN: SONDRA CHACON MD DATE OF SERVICE: 04/02/19 Discharge Plan Patient Name: LINDEN ANDERSON Facility: [facility]:[place] : 1950 Planned Disposition: Home or Self Care Anticipated Discharge Date: Discharge Date: Expected LOS: Initial Reviewer: [email or web address] Initial Review Date: 04/01/2019 Generated: 04/02/19 2:12 pm Comments DCP- Discharge Planning Updated by [email or web address]: Lilly Benavides on 04/02/19 12:[address] Patient Name: LINDEN ANDERSON Admission Status: ER Accout number: [id number] Admission Date: 04-01-2019 : 1950 Admission Diagnosis: Attending: DESHAWN CHACON Current LOS: 1 Anticipated DC Date: Planned Disposition: Home or Self Care Primary Insurance: MEDICARE A & B Discharge Planning Comments: CM met with patient to complete initial dc planning assessment. CM educated patient on the CM role and verbal consent given by patient to complete assessment. Patient lives at home where she is independent with her care. At discharge patient plans to return home and feels this is a safe discharge. Her car is in the parking lot, but she will have a family member drive her home. CM discussed availability of home health, rehab services, and medical equipment. She has a CPAP machine, but is not using it at this time. Patient denied known discharge needs at this time. CM will continue to follow and will assist as needed with dc plans/needs. Steel Fitter: Lilly Benavides DCP- Discharge Planning Updated by [email or web address]: Lilly Benavides on 04/01/19 2:[address] Attempted to see patient but she was sleeping Will try again tomorrow DCPIA - Discharge Planning Initial Assessment Updated by [email or web address]: Lilly Benavides on 04/02/19 1:09 pm * Is the patient Alert and Oriented? Yes * PCP ADRY * Pharmacy [address] * Preadmission Environment Home Alone * ADLs Independent * Equipment CPAP * List name and contact numbers for known caregivers / representatives who currently or will assist patient after discharge: APURVA ANDERSON [phone] * Verbal permission to speak to the caregivers and representatives has been obtained from the patient. N/A * Community resources currently utilized None * Additional services required to return to the preadmission environment? No * Can the patient safely return to the preadmission environment? Yes * Has this patient been hospitalized within the prior 30 days at any hospital? No Last DP export: 04/02/19 12:05 p Patient Name: LINDEN ANDERSON Page [id number] at 1312 All edits/amendments must be made on the electronic document DICTATION DATE: 04/02/191310 SENIOR STRATEGY MANAGER: MONA 04/02/191310 RPT#: [id number] DC DATE: STATUS: ADM IN [facility] [address] [place] [address] END OF REPORT
[2019-04-02 13:38] VITALS: BP 121/70
--- NOTE | 2019-04-02 14:16 | NUR ---
PT IS WITHOUT DISTRESS. SHE HAS BEEN OUT OF BED MULTIPLE TIMES TODAY. MONITOR
--- NOTE | 2019-04-02 15:56 | NUR ---
iv left forearm leaking,iv dcd with cath tip intact.iv resited to right forearm x1 stick using aseptic tech,22g.
--- NOTE | 2019-04-02 17:38 | NUR ---
REMAINS WITHOUT CHANGE. TOLERATING REG DIET.CONT PLAN OF CARE
[2019-04-02 17:57] VITALS: BP 138/75
[2019-04-02 20:00] VITALS: BP 95/59
[2019-04-03] VITALS: BP 98/60
[2019-04-03 03:00] VITALS: BP 95/56
--- NOTE | 2019-04-03 05:14 | NUR ---
resting in bed with no needs noted or stated call light and fluids in reach.
[2019-04-03 05:59] LABS: BASOPHILS 0.2 % (0-2); HEMATOCRIT 35.1 % (36.0-48.0); HEMOGLOBIN 11.7 g/dL (12-16); IMMATURE GRANULOCYTES 0.2 % (0-5); LYMPHOCYTES 29.1 % (15-50); MCHC 33.3 g/dL (31.0-37.0); MEAN PLATELET VOLUME 9.1 fL (7.4-10.4); MONOCYTES 12.6 % (2-11); NEUTROPHILS 53.9 % (40-80); PLATELET COUNT 261 10x3/uL (130-400); RDW 13.3 % (11.5-14.5); WBC 10.4 10x3/uL (4.8-10.8)
[2019-04-03 07:03] LABS: ALBUMIN 2.8 g/dL (3.4-5.0); ALKALINE PHOSPHATASE 62 U/L (46-116); ALT (SGPT) 24 U/L (10-68); BILIRUBIN - TOTAL 0.31 mg/dL (0.2-1.3); CALC OSMOLALITY 284 mosm/kg (275-300); CALCIUM 8.1 mg/dL (8.5-10.1); CARBON DIOXIDE 25.9 mmol/L (21.0-32.0); CHLORIDE - SERUM 108 mmol/L (98-107); CREATININE - SERUM 0.6 mg/dL (0.6-1.3); GLUCOSE 97 mg/dL (74-106); POTASSIUM - SERUM 3.4 mmol/L (3.5-5.1); PROTEIN - SERUM 5.9 g/dL (6.4-8.2); SODIUM 144 mmol/L (136-145); UREA NITROGEN 6 mg/dL (7-18); eGFR NON AFRICAN AMERICAN > 90 mL/min (90-120)
--- NOTE | 2019-04-03 08:17 | NUR ---
PT ALERT X 4. BREATH SOUNDS CLEAR BILAT. TELEMETRY IN PLACE. IV TO RIGHT FOREARM, PATENT, DRESSING CDI. PT REPORTING PAIN OF 2/10 TO LLQ, WILL MONITOR. 2 LOOSE STOOLS YESTERDAY, NONE SINCE. BED LOW, CALL LIGHT IN REACH. NO OTHER NEEDS AT THIS TIME.
[2019-04-03 08:49] VITALS: BP 169/86
[2019-04-03] MEDS ORDERED: FLORAJEN3 CAPS460 MG PO (10:10)
[2019-04-03] MEDS ORDERED: PROTONIX40 MG PO (10:11)
[2019-04-03] MEDS ORDERED: LEVAQUIN750 MG PO (10:11)
[2019-04-03] MEDS ORDERED: FLAGYL500 MG PO (10:12)
--- NOTE | 2019-04-03 11:10 | NUR ---
DISCHARGE PAPERWORK SIGNED, ALL QUESTIONS ANSWERED. IV TO RIGHT FOREARM DC'D, TIP INTACT.
--- NOTE | 2019-04-05 15:13 | MORECARE ---
CASE MANAGEMENT DISCHARGE SUMMARY PATIENT: LINDEN ANDERSON UNIT: [id number] ADM DATE: 04/01/19 AGE: 68 : 48 SEX: F ROOM/BED: D.8623 AUTHOR: SHAYNEDOC PHYSICIAN: REFERRING PHYSICIAN: SONDRA CHACON MD DATE OF SERVICE: 04/05/19 Discharge Plan Patient Name: LINDEN ANDERSON Facility: [facility]:[place] : 1950 Planned Disposition: Home or Self Care Anticipated Discharge Date: Discharge Date: 04/03/2019 Expected LOS: 0 Initial Reviewer: [email or web address] Initial Review Date: 04/01/2019 Generated: 04/05/19 4:13 pm Comments DCP- Discharge Planning Updated by [email or web address]: Lilly Benavides on 04/02/19 12:[address] Patient Name: LINDEN ANDERSON Admission Status: ER Accout number: [id number] Admission Date: 04-01-2019 : 1950 Admission Diagnosis: Attending: DESHAWN CHACON Current LOS: 1 Anticipated DC Date: Planned Disposition: Home or Self Care Primary Insurance: MEDICARE A & B Discharge Planning Comments: CM met with patient to complete initial dc planning assessment. CM educated patient on the CM role and verbal consent given by patient to complete assessment. Patient lives at home where she is independent with her care. At discharge patient plans to return home and feels this is a safe discharge. Her car is in the parking lot, but she will have a family member drive her home. CM discussed availability of home health, rehab services, and medical equipment. She has a CPAP machine, but is not using it at this time. Patient denied known discharge needs at this time. CM will continue to follow and will assist as needed with dc plans/needs. Tyre Finisher And Examiner: Lilly Benavides DCP- Discharge Planning Updated by [email or web address]: Lilly Benavides on 04/01/19 2:[address] Attempted to see patient but she was sleeping Will try again tomorrow DCPIA - Discharge Planning Initial Assessment Updated by [email or web address]: Lilly Benavides on 04/02/19 1:09 pm * Is the patient Alert and Oriented? Yes * PCP ADRY * Pharm[address] * Preadmission Environment Home Alone * ADLs Independent * Equipment CPAP * List name and contact numbers for known caregivers / representatives who currently or will assist patient after discharge: APURVA ANDERSON [phone] * Verbal permission to speak to the caregivers and representatives has been obtained from the patient. N/A * Community resources currently utilized None * Additional services required to return to the preadmission environment? No * Can the patient safely return to the preadmission environment? Yes * Has this patient been hospitalized within the prior 30 days at any hospital? No Coverage Notice Reviewer: [email or web address] Yasmine Schaefer Notice Issued Date-Time: 04/03/2019 10:20 Notice Type: IM Discharge Notice Notice Delivered To: Patient Relationship to Patient: Self Lumber Buyer Name: Delivery Method: HAND - Hand Delivered [place] Days: Prior Verbal Notification: Recipient Understood Notice: Yes Recipient Signature: Yes Med Rec Note Co-signed by Attending: Coverage Notice Comment: Last DP export: 04/02/19 12:12 p Patient Name: LINDEN ANDERSON Page [id number] at 1513 All edits/amendments must be made on the electronic document DICTATION DATE: 04/05/191512 STOCK TRADER: MONA 04/05/191512 RPT#: [id number] DC DATE:04/03/19 STATUS: DIS IN [facility] [address] [place] [address] END OF REPORT
== END 2019-04-03 12:00 | disposition home or self-care (01) | DRG 392 ==
LOC: D.ER 19:24 → D.MS 04-01 00:54
PROVIDERS: Family Medicine; ADMIT Emergency Medicine; ATTEND Emergency Medicine
DX: K57.92 Diverticulitis of intestine, part unspecified, without perforation or abscess without bleeding (principal); E86.0 Dehydration; R00.0 Tachycardia, unspecified; E11.65 Type 2 diabetes mellitus with hyperglycemia; E11.40 Type 2 diabetes mellitus with diabetic neuropathy, unspecified; K21.9 Gastro-esophageal reflux disease without esophagitis; K58.9 Irritable bowel syndrome, unspecified